=== PATIENT | female | born 1980 | race Caucasian/White ===

== ENCOUNTER → 2019-01-17 17:27 | Outpatient (CLI) | payer OTHER, SELFPAY ==
[2019-01-17 18:10] LABS: Basophils # 0.1 K/mm3 (0-0.2); Basophils % 0.7 % (0.1-2.0); Eosinophils # 0.3 K/mm3 (0.0-0.4); Hematocrit 43.4 % (37.0-47.0); Hemoglobin 14.3 g/dL (12.2-16.2); Lymphocytes # 2.9 K/mm3 (0.7-4.5); Lymphocytes % 23.5 % (10-50); Mean Corpuscular Hemoglobin 30.4 pg (27.0-31.2); Mean Platelet Volume 8.3 fl (7.4-10.4); Monocytes # 0.5 K/mm3 (0.1-1.0); Monocytes % 4.2 % (1.7-9.3); Neutrophils # 8.7 K/mm3 (1.8-7.8); Neutrophils % 69.7 % (37.0-80.0); Platelet Count 356 K/mm3 (142-424); Red Blood Count 4.71 M/mm3 (4.20-5.40); Red Cell Distribution Width 12.7 % (11.5-17.5); White Blood Count 12.5 K/mm3 (4.8-10.8)
[2019-01-17 19:05] LABS: Alanine Aminotransferase 36 U/L (12-78); Albumin Level 3.8 gm/dL (3.4-5.0); Alkaline Phosphatase 73 U/L (46-116); Anion Gap 14.7 mEq/L (5-15); Aspartate Amino Transferase 22 U/L (15-37); Bilirubin,Total 0.7 mg/dL (0.2-1.0); Blood Urea Nitrogen 7 mg/dL (7-18); Calcium 9.1 mg/dL (8.5-10.1); Carbon Dioxide 27 mmol/L (21.0-32.0); Chloride 104 mmol/L (98-107); Chol/HDL Ratio 4.8 (1-3.5); Cholesterol 182 mg/dL (140-200); Estimated Glomerular Filt Rate 111 ml/min (>60); GFR (African American) 135 ML/MIN (>60); Globulin 3.7 gm/dl (1.3-3.2); Glucose 105 mg/dL (74-106); HDL Cholesterol 38 mg/dL (29-89); LDL Cholesterol 116 mg/dL (0-130); Potassium 3.7 mmoL/L (3.5-5.1); Sodium 142 mmol/L (136-145); T4 (Thyroxine) 7.2 ug/dl (4.7-13.3); Thyroid Stimulating Hormone 1.35 uIU/ml (0.358-3.740); Total Protein,Serum 7.5 gm/dL (6.4-8.2); Triglycerides 138 mg/dL (30-200); VLDL Cholesterol 28 mg/dL (0-40)
[2019-01-19 07:10] LABS: Hep A Ab, IgM Negative (Negative); Hepatitis B Core Antibody IgM Negative (Negative); Hepatitis B Surface Antigen Negative (Negative)
[2019-01-19 22:04] LABS: Hepatitis C Antibody 0.1 s/co ratio (0.0-0.9)
== END ==
PROVIDERS: Visit Provider Nurse Practitioner Family
DX: R53.83 Other fatigue (principal)
CPT/HCPCS: 80053; 80061; 80074; 84436; 84443; 85025

== ENCOUNTER → 2019-01-26 10:57 | Outpatient (CLI) | payer OTHER, SELFPAY ==
--- NOTE | 2019-01-26 11:07 | XR_ITS ---
XR foot wt bearing RT 3V HISTORY: ITS.REASON: Bilat foot pain ORDERING PHYSICIAN: Mandeep Reich MD PATIENT AGE: 38 years COMPARISON: None FINDINGS: No fracture or dislocation. No lytic or blastic change. There is normal mineralization.. The joint spaces are well-preserved. No significant degenerative/arthritic changes. No erosive changes evident. There is a small 3 mm plantar calcaneal spur. IMPRESSION: No acute process. Small plantar calcaneal spur.
--- NOTE | 2019-01-26 11:07 | XR_ITS ---
XR foot wt bearing LT 3V HISTORY: ITS.REASON: Bilat foot pain ORDERING PHYSICIAN: Mandeep Reich MD PATIENT AGE: 38 years COMPARISON: None FINDINGS: No fracture or dislocation. No lytic or blastic change. There is normal mineralization.. The joint spaces are well-preserved. No significant degenerative/arthritic changes. No erosive changes evident. There is a 5 mm plantar calcaneal spur. IMPRESSION: No acute process. Plantar calcaneal small spur.
== END ==
PROVIDERS: PCP Emergency Medicine; Visit Provider Emergency Medicine
DX: M79.672 Pain in left foot (principal); M79.671 Pain in right foot
CPT/HCPCS: 73630

== ENCOUNTER → 2021-04-17 17:26 | Outpatient (CLI) | payer OTHER, SELFPAY ==
[2021-04-17 17:53] LABS: Alanine Aminotransferase 18 U/L (12-78); Albumin Level 4.1 g/dl (3.5-5.0); Albumin/Globulin Ratio 1.4 (1.1-1.8); Alkaline Phosphatase 67 U/L (38-126); Anion Gap 11.1 mEq/L (5-15); Aspartate Amino Transferase 25 U/L (14-36); Bilirubin,Total 0.7 mg/dl (0.2-1.3); Blood Urea Nitrogen 9 mg/dl (7-17); Calcium 9.2 mg/dl (8.4-10.2); Carbon Dioxide 24 mmol/L (22.0-30.0); Chloride 109 mmol/L (98-107); Cholesterol 175 mg/dl (140-200); Estimated Glomerular Filt Rate 136 ml/min (>60); GFR (African American) 165 ML/MIN (>60); Glucose 120 mg/dl (74-100); HDL Cholesterol 59 mg/dl (40-60); Potassium 4.1 mmoL/L (3.5-5.1); Sodium 140 mmol/L (136-145); Total Protein,Serum 7.1 g/dl (6.3-8.2); Triglycerides 121 mg/dl (30-150); VLDL Cholesterol 24 mg/dL (0-40)
[2021-04-17 18:04] LABS: Direct LDL Cholesterol 91.51 mg/dL (100-129)
[2021-04-17 18:10] LABS: 25-OH Vitamin D, Total 32.9 ng/mL (30-100); T4 (Thyroxine) 7.3 ug/dl (5.53-11.0)
[2021-04-17 18:14] LABS: Basophils # 0.1 K/mm3 (0-0.2); Basophils % 1.1 % (0.1-2.0); Eosinophils # 0.2 K/mm3 (0.0-0.4); Eosinophils % 2.5 % (0.1-12.0); Hematocrit 42.5 % (37.0-47.0); Hemoglobin 14.1 g/dL (12.2-16.2); Lymphocytes # 2.5 K/mm3 (0.7-4.5); Lymphocytes % 26.3 % (10-50); Mean Corpuscular HGB Conc 33.2 g/dL (31.8-35.4); Mean Corpuscular Hemoglobin 32.6 pg (27.0-31.2); Mean Corpuscular Volume 98.2 fl (81-99); Monocytes # 0.4 K/mm3 (0.1-1.0); Monocytes % 4.7 % (1.7-9.3); Neutrophils # 6.1 K/mm3 (1.8-7.8); Neutrophils % 65.5 % (37.0-80.0); Platelet Count 369 K/mm3 (142-424); Red Blood Count 4.33 M/mm3 (4.20-5.40); Red Cell Distribution Width 13.3 % (11.5-17.5); White Blood Count 9.4 K/mm3 (4.8-10.8)
== END ==
PROVIDERS: Visit Provider Nurse Practitioner Family
DX: I10 Essential (primary) hypertension (principal); F41.9 Anxiety disorder, unspecified; E66.3 Overweight; F17.210 Nicotine dependence, cigarettes, uncomplicated; Z68.33 Body mass index [BMI] 33.0-33.9, adult
CPT/HCPCS: 80053; 80061; 82306; 84436; 84443; 85025

== ENCOUNTER 2021-11-03 14:17 | Emergency (ER) | payer OTHER, SELFPAY ==
[2021-11-03 14:47] VITALS: BP 0/0; PULSE 0; RESP 0; TEMP -17.7; TEMP 0
== END 2021-11-03 14:50 | disposition left against medical advice (07) ==
PROVIDERS: Emergency Provider Nurse Practitioner Family; PCP Emergency Medicine
DX: Z53.21 Procedure and treatment not carried out due to patient leaving prior to being seen by health care provider (principal)

== ENCOUNTER 2021-11-03 16:00 | Emergency (ER) | payer OTHER, SELFPAY ==
[2021-11-03 17:33] VITALS: BP 148/98; PULSE 102; RESP 18; TEMP 37.3; O2SAT 99; BMI 37.8
--- NOTE | 2021-11-03 17:58 | HMH.EDUTC ---
[facility] [place] Disposition Clinical Impression: Ringworm, Impetigo Disposition: Home, Self-Care Condition on Discharge: Good Instructions: Impetigo, DI for Impetigo Additional Instructions: Keep the wounds clean and dry. Follow up with your regular doctor. Take the antibiotics as directed and apply the topical antibiotics as directed. GO TO THE ER FOR ANY WORSENING SYMPTOMS Prescriptions: Sulfamethoxazole/Trimethoprim [Bactrim DS tablet] 1 each PO BID 10 Days #20 tab Transmission Status: Received by [id number] Mupirocin [Bactroban 2% Ointment 22gm tube] 1 applicatio TP TID 7 Days #1 gm Transmission Status: Received by [id number] Clotrimazole 1 applic TP BID 14 Days #28.4 gm Transmission Status: Received by [id number] Referrals: Mandeep Reich MD [Primary Care Provider] - Forms: Work/School Release Time of Disposition: 18:16 Medical Decision Making - Medical Records Medical records reviewed: No: I reviewed the patient's medical records. - Dougie Inquiry Pt receiving controlled substance: No Vital Signs: 11/03/21 17:33 11/03/21 18:19 Temperature 99.1 F 99.1 F Temperature Source Oral Oral Pulse Rate 90 Pulse Rate [Left] 102 H Respiratory Rate 18 18 Blood Pressure 148/98 H Blood Pressure [Right Arm] 148/98 H Blood Pressure Mean [Right Arm] 114 02 Sat by Pulse Oximetry 99 [facility] [place] HPI - General Stated complaint: ring worm on stomach Time Seen by Provider: 11/03/21 17:58 Mode of Arrival: Ambulatory Source of Information: Patient Limitations: No Limitations Description of Symptoms (Recalled from Triage Doc. by RN): pt has a place that looks to be ringworm. there is a large red plaque area on her abdomen, with 4 small spots around the larger area, and a small spot o her right elbow. her cat has ringworm as well HEENT Symptoms (Recalled from RN notes): No Resp Symptoms (Recalled from RN notes): No Skin Symptoms (Recalled from RN notes): Yes MS Symptoms (Recalled from RN notes): No Functional Status (Recalled from RN notes): wnl - History of Present Illness Provider Complaint: She states that she has multple areas of ringworm on her abdomen and right upper arm. - Related Data Previous Rx's Medication Instructions Recorded citalopram 40 mg tablet 40 mg PO DAILY #30 tab 09/09/21 hydrochlorothiazide 25 mg tablet 25 mg PO DAILY #30 tab 09/09/21 hydroxyzine HCl 25 mg tablet See Rx Instructions .ROUTE 10/22/21 .COMPLEX #120 tab Clotrimazole 1 applic TP BID 14 Days #28.4 gm 11/03/21 Mupirocin [Bactroban 2% Ointment 1 applicatio TP TID 7 Days #1 gm 11/03/21 22gm tube] Sulfamethoxazole/Trimethoprim 1 each PO BID 10 Days #20 tab 11/03/21 [Bactrim DS tablet] Allergies Allergy/AdvReac Type Severity Reaction Status Date / Time Penicillins [PENICILLINS] Allergy Unknown Verified 11/03/21 17:36 - Worker's Comp Is this a Worker's Comp case?: No [facility] History - Hepatitis A Screen Attestation statement:: This patient has been screened for Hepatitis A risk factors. I have reviewed the patient's past medical history: Yes Medical History: Reports:: Depression Other Surgeries: Yes: Diagnostic Lap Amputation: No Fractures: No - Social History Smoking Status: Current every day smoker Tobacco Type: cigarettes # Packs/Day (cigarettes): 1 Alcohol Intake: never Alcohol Intake Frequency:: holidays/special occasions only Substance Use Type: former substance user, opiates Occupational Status: employed Housing: house - Psychiatric History Pschychiatric History:: Reports:: Depression Family Hx:: Cancer, Heart Attack, Diabetes ROS Obtained: Yes All systems reviewed & no additional complaints - Constitutional Constitutional: Denies chills, Denies fever(s) - Musculoskeletal Musculoskeletal: Denies joint pain - Integumentary/Breasts Skin/Breast: Reports as per HPI Physical Exam - General General appearance: alert, in no appar
[2021-11-03 18:19] VITALS: BP 148/98; PULSE 90; RESP 18; TEMP 37.3
== END 2021-11-03 18:20 | disposition home or self-care (01) ==
PROVIDERS: Emergency Provider Nurse Practitioner Family; PCP Emergency Medicine
DX: L01.00 Impetigo, unspecified (principal)
CPT/HCPCS: 99212; G0463

== ENCOUNTER → 2022-04-07 14:21 | Outpatient (CLI) | payer OTHER, SELFPAY ==
--- NOTE | 2022-04-07 14:31 | MM_ITS ---
PROCEDURE INFORMATION: Exam: Bilateral Screening 3D Mammography Exam date and time: 04/07/2022 2:54 PM Age: 41 years old Clinical indication: Screening examination; Additional info: Screening . Family history of breast carcinoma. TECHNIQUE: Imaging protocol: Bilateral Screening tomosynthesis and 2D mammography including computer-aided detection (CAD) when performed. COMPARISON: DIG MAMM-DX ANDREWS W ADD VIEWS 10/02/2014 2:58 PM FINDINGS: MAMMOGRAPHY: Breast composition: The breasts are heterogeneously dense, which may obscure small masses. Mass: No suspicious masses. Architectural distortion: No suspicious distortion. Calcifications: No suspicious calcifications. Asymmetric density: None. Skin thickening: None. Axillary adenopathy: None. IMPRESSION: No mammographic evidence of malignancy. Annual screening is recommended unless otherwise clinically indicated. ASSESSMENT: BI-RADS Category 1: Negative
--- NOTE | 2022-04-07 14:31 | US_ITS ---
FINAL REPORT CLINICAL HISTORY: abnormal menses FINDINGS: Transvaginal sonographic images of the pelvis were obtained. The uterus is enlarged measuring 10.5 x 7.3 x 5.1 cm. The endometrium measures 6 mm, which is within normal limits. There is a focal echogenic focus within the endometrium which may represent a polyp. Three fibroids are seen within the uterus with the largest measuring 5.7 cm. The right ovary measures 2.0 cm in length and left ovary measures 3.0 cm in length. Normal blood flow seen to the ovaries. There is a 2.6 cm cyst in the left ovary. There is no evidence of free fluid. IMPRESSION: Enlarged uterus with fibroids as above. Possible polyp within the endometrium. Left ovarian cyst. Reviewed, Interpreted and Dictated by Curtis Haley III, MD Transcribed by Charisse Peraza Authenticated and [facility]
[2022-04-07 16:47] LABS: Chol/HDL Ratio 4.9 (1-3.5); Cholesterol 207 mg/dl (140-200); Glucose,Fasting 82 mg/dl (74-100); HDL Cholesterol 42 mg/dl (40-60); Triglycerides 88 mg/dl (30-150); VLDL Cholesterol 18 mg/dL (0-40)
[2022-04-07 16:57] LABS: Direct LDL Cholesterol 143.94 mg/dL (100-129)
[2022-04-07 17:14] LABS: Hemoglobin A1C 5.2 % (4.0-6.0)
[2022-04-07 17:19] LABS: Thyroid Stimulating Hormone 1.67 uIU/mL (0.465-4.68)
[2022-04-09 08:19] LABS: FSH 4.6 mIU/mL (.); LH 10.7 mIU/mL (.); Testosterone,Total 36 ng/dL (4-50)
[2022-04-09 09:13] LABS: Insulin Level Total 4.9 uIU/mL (2.6-24.9)
== END ==
PROVIDERS: PCP Emergency Medicine; Visit Provider Obstetrics & Gynecology
DX: Z00.00 Encounter for general adult medical examination without abnormal findings (principal); N92.6 Irregular menstruation, unspecified; Z12.31 Encounter for screening mammogram for malignant neoplasm of breast
CPT/HCPCS: 36415; 76830; 77063; 77067; 80061; 82397; 82670; 82947; 83001; 83002; 83036; 83525; 84403; 84443

== ENCOUNTER → 2022-04-20 14:37 | Outpatient (CLI) | payer OTHER, SELFPAY ==
--- NOTE | 2022-04-20 14:45 | XR_ITS ---
FINAL REPORT CLINICAL HISTORY: Chronic cough, smoker, no chest surgeries. FINDINGS: Two views of the chest were obtained. The heart size and pulmonary vascularity are within normal limits. The mediastinum is normal. No acute pulmonary abnormality is identified. There is no pneumothorax. The bony thorax is intact. IMPRESSION: No active cardiopulmonary disease. Reviewed, Interpreted and Dictated by Curtis Haley III, MD Transcribed by Charisse Peraza Authenticated and [facility]
== END ==
PROVIDERS: PCP Family Medicine; Visit Provider Family Medicine
DX: R05.3 Chronic cough (principal)
CPT/HCPCS: 71046

== ENCOUNTER → 2022-05-26 14:33 | Outpatient (CLI) | payer OTHER, SELFPAY ==
--- NOTE | 2022-05-26 14:33 | US_ITS ---
FINAL REPORT CLINICAL HISTORY: following up to ovarian cyst COMPARISON: 04/07/2022 FINDINGS: Transvaginal sonographic images of the pelvis were obtained. The uterus measures 9.6 x 7.2 x 4.8 cm. The endometrium measures 5 mm, which is within normal limits. There is a possible 10 mm polyp within the endometrium. There are several fibroids in the uterus measuring up to 5.1 cm. The right ovary measures 3.1 cm in length and left ovary measures 2.5 cm in length. Normal blood flow seen to the ovaries. There is a new right ovarian cyst measuring 2.2 cm. The left ovarian cyst is improved. There is no evidence of free fluid. IMPRESSION: Possible 10 mm polyp within the endometrium. Several uterine fibroids measuring up to 5.1 cm. New right ovarian cyst and improved left ovarian cyst. Reviewed, Interpreted and Dictated by Curtis Haley III, MD Transcribed by Charisse Peraza Authenticated and [facility]
== END ==
PROVIDERS: PCP Family Medicine; Visit Provider Obstetrics & Gynecology
DX: N83.209 Unspecified ovarian cyst, unspecified side (principal)
CPT/HCPCS: 76830

== ENCOUNTER → 2022-12-31 12:39 | Outpatient (CLI) | payer OTHER, SELFPAY ==
--- NOTE | 2022-12-31 12:42 | XR_ITS ---
FINAL REPORT CLINICAL HISTORY: dyspnea - Lt arm numbness and tingling COMPARISON: 04/20/2022 FINDINGS: TWO VIEW CHEST The heart size is normal. The mediastinum is normal. The lungs are clear. There is no pneumothorax. IMPRESSION: No acute cardiopulmonary process. Reviewed, Interpreted and Dictated by Curtis Haley III, MD Transcribed by Wilda Henning Authenticated and [facility]
== END ==
PROVIDERS: PCP Nurse Practitioner Family; Visit Provider Nurse Practitioner Family
DX: R06.00 Dyspnea, unspecified (principal)
CPT/HCPCS: 71046